=== PATIENT | female | born 1960 | race Caucasian/White ===

== ENCOUNTER 2016-12-26 10:21 | Day surgery (SDC) | payer MEDICAID ==
[2016-12-26] MEDS ORDERED: MIDAZOLAM 2 MG/2 ML VIAL ONE (11:58)
[2016-12-26] MEDS ORDERED: fentaNYL 100 MCG/2 ML INJ ONE (12:00)
[2016-12-26] MEDS ORDERED: PROPOFOL/EMULSION 500 MG/50 ML BOTTLE IV ONE (12:01)
[2016-12-26] MEDS ORDERED: LIDOCAINE 2% 5 ML SDV ONE (12:02)
[2016-12-26] MEDS ORDERED: PHENYLEPHRINE HCL 100 MCG/ML SYR ONE (12:21)
--- NOTE | 2016-12-26 12:53 | GPN ---
[f rep st] PROCEDURE NOTE DATE OF PROCEDURE: 12/26/2016 PROCEDURE: Esophagogastroduodenoscopy with biopsy. INDICATION: The patient is a 56-year-old female with a history of hepatitis C, alcohol use, who presents for evaluation of epigastric as well as RUQ abdominal pain. The patient complains of a pain in her mid epigastric area/RUQ which occurs on a daily basis and lasts multiple hours. She denies any exacerbating or alleviating factors to her symptoms. CONSENT: Risks, benefits, and alternatives of the procedure were discussed in great detail with the patient. Risk of infection, bleeding, perforation, and sedation were discussed. All questions answered. Informed consent was obtained. MEDICATIONS: Propofol. Please see Anesthesiology record for details. ESTIMATED BLOOD LOSS: Insignificant. ESOPHAGOGASTROSCOPY EXAM: The Olympus upper endoscope was introduced into the mouth and advanced into the esophagus. The proximal, mid, and distal esophagus were normal in appearance. No esophageal varices were noted. The stomach was entered and closely examined, including retroflexed views of angularis, cardia, and fundus. The patient noted to have a small hiatal hernia. The mucosa in the antrum and the body of the stomach was erythematous in a patchy distribution and biopsies were taken. The duodenal bulb and second portion of duodenum were normal in appearance. Biopsies taken for celiac sprue. IMPRESSION: 1. Normal esophagus. 2. Hiatal hernia. 3. Gastritis status post biopsy. 4. Biopsy for celiac sprue. 5. No obvious cause for the symptoms noted. RECOMMENDATIONS: 1. Follow up on biopsy results. 2. Consider trial of full dose PPI as well as Carafate. 3. Proceed to colonoscopy. /[id number]/MODL MTDD
--- NOTE | 2016-12-26 13:18 | GPN ---
[f rep st] PROCEDURE NOTE DATE OF PROCEDURE: 12/26/2016 PROCEDURE: Colonoscopy with biopsy. INDICATION: The patient is a 56-year-old female with a personal history of polyps who presents for surveillance colonoscopy. CONSENT: Risks, benefits, and alternatives of the procedure were discussed in great detail with the patient. Risks of infection, bleeding, perforation, and sedation were discussed. All questions were answered. Informed consent was obtained. MEDICATIONS: Propofol. Please see Anesthesiology record for details. ESTIMATED BLOOD LOSS: Insignificant. COLONOSCOPIC EVALUATION: A rectal exam was done and no palpable mass was felt. The Olympus adult colonoscope was introduced into the rectum, advanced to the cecum where the ileocecal valve and appendiceal orifice were seen. The colonic mucosa was carefully examined on both insertion and withdrawal of the scope. The quality of prep was good. In the transverse and sigmoid colon, 2 polyps were seen measuring from 2-3 mm, and removed by excisional biopsy. Small diverticula were noted in the sigmoid colon. IMPRESSION: 1. Sigmoid diverticulosis. 2. Colonic polyps x2, status post excisional biopsy. RECOMMENDATIONS: 1. Followup on biopsy results. 2. Repeat colonoscopy in 5 years. /[id number]/MODL MTDD
== END 2016-12-26 13:55 | disposition home or self-care (01) ==
LOC: FSGY 10:21
PROVIDERS: ATTEND Internal Medicine Gastroenterology
PROC: 0DB68ZX Excision of Stomach, Via Natural or Artificial Opening Endoscopic, Diagnostic (ICD-10-PCS; principal; 2016-12-26 11:45)
PROC: 0DB98ZX Excision of Duodenum, Via Natural or Artificial Opening Endoscopic, Diagnostic (ICD-10-PCS; principal; 2016-12-26 11:45)
PROC: 0DBL8ZX Excision of Transverse Colon, Via Natural or Artificial Opening Endoscopic, Diagnostic (ICD-10-PCS; principal; 2016-12-26 11:45)
PROC: 0DBN8ZX Excision of Sigmoid Colon, Via Natural or Artificial Opening Endoscopic, Diagnostic (ICD-10-PCS; principal; 2016-12-26 11:45)
DX: Z12.11 Encounter for screening for malignant neoplasm of colon (principal); D12.5 Benign neoplasm of sigmoid colon; D12.3 Benign neoplasm of transverse colon; K29.70 Gastritis, unspecified, without bleeding; K44.9 Diaphragmatic hernia without obstruction or gangrene; K57.30 Diverticulosis of large intestine without perforation or abscess without bleeding; B19.20 Unspecified viral hepatitis C without hepatic coma; I10 Essential (primary) hypertension; F17.210 Nicotine dependence, cigarettes, uncomplicated; Z72.89 Other problems related to lifestyle; Z86.010 Personal history of colon polyps
CPT/HCPCS: J2250; J2370; J2704; J3010

== ENCOUNTER → 2017-11-06 | Outpatient (CLI) | payer MEDICAID ==
[~2017-11-06] MED LIST: IOPAMIDOL (ISOVUE-300) 100 ML BTL ONE
== END ==
LOC: FIMAGING 10:26
PROVIDERS: ATTEND Physician Assistant
DX: N20.0 Calculus of kidney (principal); Z90.49 Acquired absence of other specified parts of digestive tract
CPT/HCPCS: Q9967

== ENCOUNTER 2018-04-21 | Emergency (ER) | payer MEDICAID | END 2018-04-21 20:25 | disposition home or self-care (01) ==